=== PATIENT | male | born 1990 | race African-American/Black ===

== ENCOUNTER → 2019-04-18 | Outpatient (CLI) | payer BC, OTHER ==
[~2019-04-18] MED LIST: NORCO 5-325 TA1 EAC1 PO
== END ==
LOC: CAT 08:54
DX: R19.00 Intra-abdominal and pelvic swelling, mass and lump, unspecified site (principal)

== ENCOUNTER 2019-04-22 11:18 | Day surgery (SDC) | payer BC, OTHER ==
[~2019-04-22] VITALS: Ht 182.9 cm; Wt 156.5 kg
--- NOTE | ~2019-04-22 | O ---
[facility] [place] [address] OPERATIVE REPORT Name: IADE VARGASCarmela Ha Room #: DEP [facility]#: [id number] Admission: 04/22/19 Attend Phys: Patrick Cole MD Discharge: 04/22/19 Date of : 89 Report #: [id number] THIS REPORT FOR: cc: NILESH - Britany family physician/PCP NILESH - Britany family physician/PCP Patrick Cole MD ~ CC: NILESH physician/PCP Patrick Cole DATE OF SERVICE: 04/22/2019 PREOPERATIVE DIAGNOSIS: Large mass/lipoma in the right lower lateral abdomen, pelvis, flank area measuring 20 x 28 cm. POSTOPERATIVE DIAGNOSIS: Large mass/lipoma in the right lower lateral abdomen, pelvis, flank area measuring 20 x 28 cm. PROCEDURE PERFORMED: Excision of huge right abdominal, pelvis, flank lipoma. ANESTHESIA: General. SURGEON: Patrick Cole MD COMPLICATIONS: The patient woke up quite rough and had to be held down. No intraoperative complications. ESTIMATED BLOOD LOSS: 20 mL. PROCEDURE NOTE: With the patient under general anesthesia, the timeout was performed. Abdomen was prepped and draped in sterile fashion. 0.25% Marcaine was used to anesthetize the skin at the incision site. A long ellipse was drawn over the mass. The mass was measured 20 cm craniocaudad and 28 cm transversely. The fat that was underneath actually was fairly easy to separate from the subcutaneous fat, did have a fairly well demarcation. There were several lobulated extensions. The fat was dissected from the overlying rest of the skin from the posterior fat, which was normal and then lateral fat. Specimen was sent to pathology. A #19 Vinny drain was brought out through a stab incision slightly superior to the wound. This was sewn with a 2-0 silk suture. The deep subcutaneous fat was closed with a 3-0 PDS. Skin was closed with 4-0 PDS. Multiple separate 4-0 nylon was also used to close over the subcuticular suture to reinforce it. Steri-Strips applied, 4 x 4s, ABD tape was applied. Surgical [address] [address] OPERATIVE REPORT Name: MARBELLA VARGAS Room #: DEP [facility]..#: [id number] Admission: 04/22/19 Attend Phys: Patrick Cole MD Discharge: 04/22/19 Date of : 89 Report #: [id number] tape was applied. The patient was taken to recovery room, but when he woke up, he was quite agitated. By: [id number] Patrick Cole MD /nt
--- NOTE | ~2019-04-22 | H ---
[facility] [address] [place] [address] HISTORY AND PHYSICAL Name: MARBELLA VARGAS Room #: PRE [facility]..#: [id number] Admission: Attend Phys: Patrick Cole MD Discharge: Date of : 89 Report #: [id number] THIS REPORT FOR: //name// CC: [facility] physician/PCP Patrick Cole DATE OF SERVICE: 04/22/2019 PREOPERATIVE DIAGNOSIS: Large lipoma located in the right lower abdomen, pelvis, flank area. HISTORY OF PRESENT ILLNESS: The patient is a 28-year-old, who is here to excise a large mass located in the lower part of the lateral abdomen, pelvis towards the flank. This is about 20 cm. This has been there for about 5 years. He is having pain in this area when he lifts. This is more symptomatic when he is at work. Occasionally, the pain is pretty bad. The pain is sharp, radiates to the inner part of the groin, thigh area. No nausea or vomiting. Bowels are working. The patient has a large mass. I did do a CT scan and there is nothing deeper. The patient is here to excise this large mass. PAST MEDICAL HISTORY: The patient denies any medical problems. No illnesses. No prior surgery. The patient does have obesity. ALLERGIES: He is not allergic to anything. MEDICATIONS: He is not on any medication. FAMILY HISTORY: There is high blood pressure and diabetes in the family. SOCIAL HISTORY: The patient is a furniture delivery driver. He does not smoke or drink. REVIEW OF SYSTEMS: No shortness of breath, chest pain, or palpitation. IMPRESSION: The patient is a 28-year-old, who has a large mass that has been growing for many years. There is a huge mass, which is consistent with a lipoma. There is nothing internal on CAT scan. The patient is recommended to have this removed because of the large size and the symptomatic nature. Risks of bleeding and infection discussed. Likely a drain will be needed after the procedure. Risks of bleeding, infection, and recurrence were discussed. He wishes to proceed. By: 56 Patrick Cole MD /nt
[2019-04-22 14:26] VITALS: BP 138/95
[2019-04-22] MEDS ORDERED: NORCO 5-325 TA1 EAC1 PO (14:38)
[2019-04-22 15:29] VITALS: BP 138/95
--- NOTE | 2019-04-25 17:07 | PATH ---
[facility] [address] [place] [address] PATHOLOGY RPT PROCEDURE Name: BRENT VARGAS Room #: DEP [facility] M.R.#: [id number] Admission: 04/22/19 Date of : 89 Discharge: 04/22/19 Report #: [id number] Path Case #: [id number] [facility] Accession Number: [id number] . 01 Material submitted: . abdomen - MASS-LIPOMA RIGHT LATERAL LOWER ABDOMEN. Modifiers: right, lateral, lower . 01 Clinical history: . Localized swelling, mass and lump, unspecified. . 02 Diagnosis: Mature adipose tissue, right lateral lower abdomen, excision: - Mature adipose tissue compatible with a lipoma, 22.5 cm. - Scattered areas of fat necrosis. - Skin showing reactive changes. (IUV:christi; 04/25/2019) [facility] 04/25/2019 1550 Local . 02 Comment: Clinical correlation is required to assess the margin of resection for this specimen due to the presence of unremarkable adipose tissue at the inked margins. (IUV:stock associate; 04/25/2019) . 02 Electronically signed: . Marianne Calderón MD, Pathologist NPI- [id number] . 01 Gross description: . Received in formalin labeled "Brent Vargas, mass/lipoma right lateral lower abdomen" is a 22.5 x 17.6 x 7.3 cm yellow-teixeira lobulated soft tissue mass, with an attached ellipse of dark brown skin on one aspect measuring 21.6 x 11.1 x 0.5 cm. The resection margin is inked entirely black. The specimen is sectioned to reveal a yellow-teixeira homogeneous cut surface, without hemorrhage or necrosis. Tunnel Elastic Operator Zigzag sections are submitted in cassettes A1-A12, with two sections in each cassette. ([employer] [employer]; 04/23/2019) [facility] 04/23/2019 0953 Local . 02 Pathologist provided ICD-10: D17.1, I96 . 02 CPT . 852662 Performed at: [address] [facility] [address], [place] [id number] [place] [address] PATHOLOGY RPT PROCEDURE Name: BRENT VARGAS Room #: DEP [facility].R.#: [id number] Admission: 04/22/19 Date of : 89 Discharge: 04/22/19 Report #: [id number] Path Case #: [id number] MD Shady Chacon MD Phone: [phone] Performed at: [address] [id number] MD Marianne Calderón MD Phone: [phone]
== END 2019-04-22 16:10 | disposition home or self-care (01) ==
LOC: OR 11:18 → TBA 11:18 → OR 16:10
DX: D17.1 Benign lipomatous neoplasm of skin and subcutaneous tissue of trunk (principal); K65.4 Sclerosing mesenteritis; F17.210 Nicotine dependence, cigarettes, uncomplicated; Z82.49 Family history of ischemic heart disease and other diseases of the circulatory system; Z83.3 Family history of diabetes mellitus
CPT/HCPCS: 50010; 50101; 50331; 50386; 50417; 51301; 56525; 56526; 56527; 62110; 62900; 70005